=== PATIENT | male | born 1965 | race Caucasian/White ===

== ENCOUNTER 2025-02-19 14:31 | Inpatient (IN) | payer MEDICARE, MEDICAID ==
[~2025-02-19] VITALS: Ht 162.6 cm; Wt 65.9 kg
[~2025-02-19 14:31] MED LIST: ACET-75 PO; BRIM5DRO21 RIGHTEYE; CARSR60C PO; DULA4.5P SUBCUT; FURO20TA4 PO; INSU100V9 SQ; LANTUS SQ; LISI20TA28 PO; RIVA20TA PO; SITA100T11 PO
--- NOTE | 2025-02-19 15:11 | Physician Documentation ---
History of Present Illness ~ Chief Complaint: Wound Re-Check Stated Complaint: LEG WOUNDS Time Seen by MD: 18:00 Primary Medical Doctor: Kacey Brown HPI Patient presents to the emergency room for evaluation of lower extremity wounds. 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 He required surgical debridement by Dr. Daugherty at that time. Since that time he has been seen by wound care and saw wound care two days ago and danielle Solorzano who advised him to come to wound care [place] the city to be evaluated as symptoms had significantly worsened. He denies any fevers. He does states that there was some maggots crawling in his wounds. Today at wound care he was advised to come in to the emergency room. Tetanus within 5 years?: Yes Medication Reconciliation Allergies: Coded Allergies: codeine (Verified Adverse Reaction, Intermediate, 02/19/25) pt has a codeine intolerance Scheduled Brimonidine Tartrate/Timolol (Brimonidine-Timolol 0.2%-0.5%), 1 DROP RIGHTEYE BID, (Reported) Diltiazem Hcl (Cardizem Sr), 1 CAP PO Q12H Dulaglutide (Trulicity), 1 SYR SUBCUT Q7D, (Reported) Furosemide (Furosemide), 1 TAB PO DAILY Insulin Glargine,Hum.rec.anlog (Lantus), 30 UNIT SQ HS, (Reported) Insulin Glargine,Hum.rec.anlog* (Lantus*), 34 UNITS SQ QAM, (Reported) Lisinopril (Lisinopril), 20 MG PO DAILY Rivaroxaban (Xarelto), 1 TAB PO HS, (Reported) Sitagliptin Phosphate (Januvia), 1 TAB PO DAILY, (Reported) Scheduled PRN Acetaminophen (Acetaminophen), 1-2 TAB PO Q8H PRN for pain, (Reported) Past Medical History Past Medical History: Diabetes Past Surgical History: orthopedic surgeries, other Alcohol Use: None Drug Use: none Lives with: Alone Lives In: Home Occupation: retired Review of Systems ROS All review of systems negative except as per HPI Physical Exam Vital Signs: Temperature: 98.6, Source: Temporal, Heart Rate: 109, Respiratory Rate: 18, BP: 157/81, Pulse Oximetry: 98, Weight: 65.910 Oxygen Flow Rate: 0 Physical Exam General: Patient is awake, alert, oriented x4 in no acute distress. Wheelchair- bound but can transfer Head: Normocephalic and atraumatic. Eyes: Conjunctival normal. EOMI. PERRL. ENT: Mucous membranes moist. Neck: Supple, trachea is midline. Chest: Clear to auscultation bilaterally without rales, rhonchi, or wheezes. There is no accessory muscle use or retractions. Cardiac: RRR without murmurs, gallops, or rubs. Extremities: chronic ulcer to left anterior lang, foul smelling measuring approximatly 7cm X14 cm. OOzing clear fluid. Noted significant bilateral foot edema with flaking. Chronic wound noted to right anterior lang that does not ap pear infected. Progress Results/Orders Results/Orders Orders - SHIN VICKERS MD Page Hospitalist (02/19/25 18:44) Fill Out Med Reconciliation (02/19/25 18:44) Completed Orders - SHIN VICKERS MD Normal Saline 1000ml (Sodium Chloride 10 (02/19/25 18:25) Vancomycin Inj (Vancomycin Inj) (02/19/25 18:23) Vancomycin/Ns 1 Gm Add-[place] (Vancomyc (02/19/25 18:25) Medications Received in ER Medications (Trade) Dose Ordered Sig/Baltazar Route PRN Reason Start Time Stop Time Status Last Admin Dose Admin Sodium Chloride 1,000 ml @ 1,000 mls/hr ONCE ONCE IV 02/19/25 18:25 02/19/25 19:24 DC 02/19/25 19:14 1,000 MLS/HR Vancomycin HCl 250 ml @ 166 mls/hr ONCE STAT IV 02/19/25 18:25 02/19/25 19:53 DC 02/19/25 19:14 166 MLS/HR Vital Signs 02/19/25 02/19/25 14:40 17:45 Temp 98.6 Pulse 109 108 Resp 18 16 B/P (MAP) 157/81 148/80 (102) Pulse Ox 98 99 O2 Flow Rate 0 0 Laboratory Tests Test 02/19/25 15:37 White Blood Count 10.0 Red Blood Count 4.75 Hemoglobin 13.4 L Hematocrit 38.9 L Mean Corpuscular Volume 82.0 Mean Corpuscular Hemoglobin 28.2 Mean Corpuscular Hemoglobin Concent 34.4 Red Cell Distribution Width 13.3 Platelet Count 394 Mean Platelet Volume 9.3 Neutrophils (%) (Auto) 64.9 Lymphocytes (%) (Auto) 20.4 L Monocytes (%) (Auto) 9.8 Eosinophils (%) (Auto) 2.6 Basophils (%) (Auto) 2.3 H Neutrophils # (Auto) 6.5 Lymphocytes # (Auto) 2.0 Monocytes # (Auto) 1.0 H Eosinophils # (Auto) 0.3 Basophils # (Auto) 0.2 CBC Comment Sodium Level 140 Potassium Level 5.2 H Chloride Level 103 Carbon Dioxide Level 28.1 Anion Gap 9 Blood Urea Nitrogen 40 H Creatinine 0.99 Estimated GFR/1.73 m2 77 BUN/Creatinine Ratio 40.4 H Glucose Level 397 H Hemoglobin A1c 9.7 H Lactic Acid Level 1.1 Calcium Level 9.7 Albumin 3.0 L Procalcitonin 0.11 Chemistry Comments Microbiology Date/Time Source Procedure Growth Status 02/19/25 17:11 Blood Arm Right Blood Culture - Preliminary NEGATIVE (LESS THAN 24 HOURS) Resulted Medical Decision Making Findings Patient presented to the emergency room with wounds as per HPI in his lower extremities. Differentials include but are not limited to cellulitis, abscess, diabetic foot ulcer, sepsis therefore emergent labs ordered. The concern is patient seems to have failed outpatient management therefore we will admit Departure Admitted to Inpatient Unit: yes, to hospitalist Impression: Primary Impression: Cellulitis Condition: Guarded Referrals: NO PRIMARY CARE PROVIDER (PCP) Additional Comment Medical Screen Exam History: This is a 59-year-old male with history of surgery to his right posterior calf, patient is being seen at outpatient wound care for wounds to bilateral legs, care provider was concern for progressing infection and directed the patient to the emergency department. Exam: VITALS: Reviewed and as above. GENERAL: Alert, nontoxic appearing, no apparent distress. RESPIRATORY: No increased work of breathing, no respiratory distress, speaking in full clear sentences SKIN: Dressed wounds to bilateral legs without evidence of bleeding, dressings left in place as exam was in triage MSE performed in triage and patient returned to ED lobby by nursing staff you develop ED room, patient was well-appearing in triage and appropriate for wait in lobby The note accurately reflects work and decisions made by me.ANGELINA Esquivel 02/19/25 15:11 Signature Scribe Signature: No scribe Attestation: The note accurately reflects work and decisions made by me.Shin Vickers MD 02/20/25 00:39 JANUARY ALEXANDRE Feb 19, 2025 15:11 SHIN VICKERS MD Feb 19, 2025 18:28
[2025-02-19 16:00] LABS: BASOPHILS # (AUTO) 0.2 X10'3 (0-0.2); BASOPHILS % (AUTO) 2.3 % (0-1); EOSINOPHILS # (AUTO) 0.3 X10'3 (0-0.9); EOSINOPHILS % (AUTO) 2.6 % (0-6); HEMATOCRIT 38.9 % (42.0-52.0); HEMOGLOBIN 13.4 g/dl (14.0-17.9); LYMPHOCYTES % (AUTO) 20.4 % (21-51); MEAN CORPUSCULAR HEMOGLOBIN 28.2 PG (27.0-31.0); MEAN CORPUSCULAR HGB CONC 34.4 g/dL (33.0-36.5); MEAN PLATELET VOLUME 9.3 FL (7.4-10.4); MONOCYTES % (AUTO) 9.8 % (2-12); NEUTROPHILS # (AUTO) 6.5 X10'3 (1.8-7.7); NEUTROPHILS % (AUTO) 64.9 % (42-75); PLATELET COUNT 394 X10'3 (140-440); RED BLOOD COUNT 4.75 X10'6 (4.70-6.10); RED CELL DISTRIBUTION WIDTH 13.3 % (11.5-14.5)
[2025-02-19 16:19] LABS: ANION GAP 9 (8-16); BLOOD UREA NITROGEN 40 MG/DL (7-18); BUN/CREATININE RATIO 40.4 (10.0-20.0); CALCIUM 9.7 MG/DL (8.5-10.1); CHLORIDE 103 MMOL/L (99-107); CREATININE 0.99 MG/DL (0.60-1.10); GLUCOSE 397 MG/DL (70-104); POTASSIUM 5.2 MMOL/L (3.5-5.1); SODIUM 140 MMOL/L (135-145); TOTAL CARBON DIOXIDE 28.1 MMOL/L (24-32); eCRCL 67 ML/MIN; eGFR 77 ML/MIN
[2025-02-19] MEDS ORDERED: vancomycin inj 1,000 MG in normal saline 250ml IV soln 250 ML IV STA (18:23)
[2025-02-19] MEDS: vancomycin/NS 1 GM ADD-VANTAGE 250 ML IV STA (19:14)
[2025-02-19] MEDS: normal saline 1000ml 1,000 ML IV ONE (19:14)
[2025-02-19] MEDS ORDERED: potassium Cl 20 mEq SR tablet PO PRN ×2 (20:10)
[2025-02-19] MEDS ORDERED: magnesium sulf-water 4G/100mL 100 ML IV PRN (20:10)
[2025-02-19] MEDS ORDERED: magnesium Cl slow-release 64mg tablet PO PRN (20:10)
[2025-02-19] MEDS ORDERED: magnesium sulf-water 2g/50mL 50 ML IV PRN (20:10)
[2025-02-19] MEDS ORDERED: CefTRIAXone/D5W-Rocephin 1gm 50 ML IV ONE (20:10)
[2025-02-19] MEDS ORDERED: potassium Cl 40MEQ/1/2NS 520ml 520 ML IV PRN (20:10)
[2025-02-19] MEDS ORDERED: ondansetron/PF 4mg/2ml inj IV PRN (20:10)
--- NOTE | 2025-02-19 20:16 | HISTORY AND PHYSICAL-Residence ---
History & Physical Providers to CC Resident Creating Document: MITRA JORGE LEANA ~ History of Present Illness Primary Medical Doctor: Kacey Brown Reason for Admit\Complaint: B/L leg swelling & non-healing wound History of Present Illness This is a 59-year-old male with a history of chart could to disease, wheelchair-bound, history of poorly controlled DM, peripheral neuropathies, and hypertension was referred by the wound care clinic for evaluation of nonhealing lower extremity wounds, present for approximately two months. The patient underwent surgical debridement of the right lower extremity in October [address] Daugherty. Since then, he has been followed by wound care with poor healing response. For the past several days, he reports increasing swelling in both lower extremities, more pronounced on the left side, along with significantly worsened pain he denies fever, but reports intermittent chills. Notably, he observed maggots crawling in the wound. Allergies: Coded Allergies: codeine (Verified Adverse Reaction, Intermediate, 02/19/25) pt has a codeine intolerance Home Medications Home Medications Active Furosemide 20 Mg Tablet 1 Tab PO DAILY 10 Days Lisinopril 20 Mg Tablet 20 Mg PO DAILY 30 Days Cardizem Sr (Diltiazem Hcl) 60 Mg Cap.sr.12h 1 Cap PO Q12H 30 Days Reported Acetaminophen 500 Mg Tablet 1-2 Tab PO Q8H PRN Brimonidine-Timolol 0.2%-0.5% (Brimonidine Tartrate/Timolol) 0.2 %-0.5 % Drops 1 Drop RIGHTEYE BID Lantus (Insulin Glargine,Hum.rec.anlog) 100 Unit/Ml Vial 30 Unit SQ HS Lantus* (Insulin Glargine) 100 Unit/1 Ml Vial 34 Units SQ QAM Trulicity (Dulaglutide) 4.5 Mg/0.5 Ml Pen.injctr 1 Syr SUBCUT Q7D Xarelto (Rivaroxaban) 20 Mg Tablet 1 Tab PO HS Januvia (Sitagliptin Phosphate) 100 Mg Tablet 1 Tab PO DAILY Past Medical History Past Medical History Childhood Bebe tooth disease, hypertension, peripheral neuropathies, diabetes, hypertension Past Social History Social History Comment Patient lives alone by himself, has a caregiver, wheelchair-bound, denies smoking cigarettes, consuming alcohol, or recreational drugs. Smoking: Non-Smoker Alcohol Use: None Drug Use: None Lives with: Alone Lives In: Home Occupation: retired ROS All Other Systems: Reviewed and Negative ROS As stated above in the HPI, otherwise all systems are reviewed and negative. Exam Vitals: Vital Signs Date Time Temp Pulse Resp B/P (MAP) Pulse Ox O2 Delivery O2 Flow Rate FiO2 02/19/25 17:45 108 16 148/80 (102) 99 0 02/19/25 14:40 98.6 General: Awake and Alert, no acute distress. HEENT: Conjunctiva pink, Sclera clear, Mucus Membranes moist. Neck: Supple without masses and tenderness. Resp: Unlabored. Lungs clear to auscultation bilaterally. Heart: Regular Rate and rhythm, normal S1 and S2 without murmur, rub or gallop. Abdomen: Soft and non tender no organomegaly Extremities: Open wounds bilateral lower extremities, more pronounced on left lower extremity, with bilateral swelling and some tenderness. Swelling more pronounced on left foot, pedal pulses feeble Skin: Warm and Dry. Diagnostic Data Last Recorded Lab Results: 02/20/25 0444 02/20/25 0444 Advance Care Planning Advanced Care plannin - 30 Minutes Additional Plan 59-year-old male with progressively worsening left lower extremity swelling and pain in the setting of chronic wounds. Reports chills but no fever, and presence of maggots in the wound, concern for superimposed soft tissue infection. Clinical picture consistent with left lower extremity cellulitis, with concern for polymicrobial infection given poor glycemic control in immune status Chronic nonhealing bilateral lower extremity wounds Left lower extremity cellulitis Necrotizing soft tissue infection is less likely Antibiotics: Initiated vancomycin and Zosyn for broad-spectrum coverage including MRSA, Gram-negative, and anaerobes. Adjust based on culture result in renal function Wound care consult requested Follow ESR, proceed with the MRI if elevated Follow wound culture Follow LLE vascular ultrasound Poorly controlled diabetes type 2 HbA1C 9.7 Hyperglycemia/hypoglycemia protocol in place Lantus 50 units, and lispro 15 units 3 times daily Carb controlled diet Atrial fibrillation: Rate controlled Continue Xarelto 10 mg HS. Hypertension History of hypertensive urgency Continue home medications Code status: Full code DVT prophylaxis: Devora Wallace noel Internal Medicine Resident Date of Service: Feb 19, 2025 Billing Provider: SELVIN MEIER MD Common Visit Codes: [id number] INP/OBS CARE (HIGH) Assessment/Plan Assessment Evaluated the patient with the help of residents. Discussed the case with them. Reviewed notes by the resident. Agree with his assessments and plans. Additionally I also reviewed patient's records. Labs radiology and notes from other providers I agree with the current assessments and plans no additional points at this time. MITRA JORGE, RES Feb 19, 2025 20:16 SELVIN MEIER MD Feb 20, 2025 06:23
[2025-02-19] MEDS ORDERED: piperacillin/tazo 3.375gm/50ml 50 ML IV SCH (20:25)
[2025-02-19] MEDS ORDERED: glucagon, human recombinant 1mg kit SUBCUT PRN (20:30)
[2025-02-19] MEDS ORDERED: DEXTROSE 15 GM of carb/4 tabs (each vial/BOTTLE has 4 tablets) PO PRN ×2 (20:30)
[2025-02-19] MEDS ORDERED: dextrose 50%-water 50ml dispensing syringe IV PRN ×2 (20:30)
[2025-02-19 20:31] LABS: HEMOGLOBIN A1C 9.7 % (4.5-6.2)
[2025-02-19] MEDS: normal saline 1000ml 1,000 ML IV SCH (20:38)
[2025-02-19] MEDS: piperacillin/tazo 3.375gm/50ml 50 ML IV SCH (20:46)
[2025-02-19] MEDS: INSULIN LISPRO 100 UNIT/ML INSULN.PEN MULTI-DOSE SQ SCH (21:13)
[2025-02-19] MEDS: insulin glargine (Lantus) pen - multi-dose SQ SCH (21:22)
[2025-02-19 21:34] LABS: BILIRUBIN,URINE NEGATIVE (Neg); CLARITY,URINE CLEAR (Clear); COLOR,URINE YELLOW (Yellow); GLUCOSE, URINE >=1000 mg/dl (Neg); KETONES,URINE NEGATIVE (Neg); LEUKOCYTE ESTERASE ,URINE NEGATIVE (Neg); NITRITES, URINE NEGATIVE (Neg); OCCULT BLOOD,URINE SMALL (Neg); PROTEIN,URINE 100 mg/dl (Neg); UROBILINOGEN,URINE 0.2 E.U/dL (0.2-1.0)
[2025-02-19 21:35] LABS: UA COLLECTION TYPE NON-SPECIFIED
[2025-02-19 21:40] LABS: BACTERIA,URINE NONE SEEN /HPF (Neg); MUCUS STRANDS NONE SEEN /LPF (Neg); SQUAMOUS EPITHELIAL CELL,UR FEW /LPF (FEW); WBC,URINE 0-4 /HPF (0-4)
[2025-02-19 22:00] VITALS: BP 168/74; PULSE 111; RESP 18; TEMP 97.6; O2SAT 99
[2025-02-19] MEDS: acetaminophen 325mg tablet PO PRN (23:47)
[2025-02-20 05:05] LABS: BASOPHILS # (AUTO) 0.2 X10'3 (0-0.2); EOSINOPHILS # (AUTO) 0.3 X10'3 (0-0.9); EOSINOPHILS % (AUTO) 3.5 % (0-6); LYMPHOCYTES # (AUTO) 1.5 X10'3 (1.1-4.8); MONOCYTES # (AUTO) 1.3 X10'3 (0-0.9)
[2025-02-20 05:07] LABS: BASOPHILS % (AUTO) 2.3 % (0-1); HEMATOCRIT 35.9 % (42.0-52.0); HEMOGLOBIN 12.2 g/dl (14.0-17.9); LYMPHOCYTES % (AUTO) 16.1 % (21-51); MEAN CORPUSCULAR HEMOGLOBIN 28.1 PG (27.0-31.0); MEAN CORPUSCULAR VOLUME 82.7 FL (78-98); MEAN PLATELET VOLUME 9.1 FL (7.4-10.4); MONOCYTES % (AUTO) 13.6 % (2-12); NEUTROPHILS % (AUTO) 64.5 % (42-75); PLATELET COUNT 308 X10'3 (140-440); RED BLOOD COUNT 4.34 X10'6 (4.70-6.10); WHITE BLOOD COUNT 9.3 X10'3 (4.5-11.0)
[2025-02-20 05:30] LABS: ALANINE AMINOTRANSFERASE 14 U/L (12-78); ALBUMIN 2.4 G/DL (3.4-5.0); ALBUMIN/GLOBULIN RATIO 0.7 (1.1-1.5); ALKALINE PHOSPHATASE 81 IU/L (46-116); ANION GAP 6 (8-16); ASPARTATE AMINO TRANSFERASE 13 U/L (10-37); BILIRUBIN,TOTAL 0.2 MG/DL (0.1-1.0); BLOOD UREA NITROGEN 28 MG/DL (7-18); BUN/CREATININE RATIO 45.2 (10.0-20.0); CALCIUM 8.6 MG/DL (8.5-10.1); CHLORIDE 109 MMOL/L (99-107); CHOL/HDL RATIO 5.1 (0.00-4.99); CHOLESTEROL 137 MG/DL (0-200); CREATININE 0.62 MG/DL (0.60-1.10); GLUCOSE 119 MG/DL (70-104); HDL CHOLESTEROL 27 MG/DL (35-60); LDL CHOLESTEROL 59 MG/DL (50-100); SODIUM 140 MMOL/L (135-145); TOTAL CARBON DIOXIDE 25.3 MMOL/L (24-32); TOTAL PROTEIN 5.9 G/DL (6.4-8.2); TRIGLYCERIDES 275 MG/DL (20-135); eCRCL 107 ML/MIN; eGFR > 90 ML/MIN
[2025-02-20 06:00] VITALS: BP 162/84; PULSE 102; RESP 13; TEMP 98.2; O2SAT 96
[2025-02-20] MEDS: vancomycin/NS 1 GM ADD-VANTAGE 250 ML IV SCH (06:50)
[2025-02-20 08:00] VITALS: RESP 13; O2SAT 96
[2025-02-20] MEDS ORDERED: CefTRIAXone/D5W-Rocephin 1gm 50 ML IV SCH (08:00)
[2025-02-20] MEDS: K and/or MAG REPLACEMENT MC SCH (08:00)
[2025-02-20] MEDS: INSULIN LISPRO 100 UNIT/ML INSULN.PEN MULTI-DOSE SQ SCH ×3 (08:00→19:25)
--- NOTE | 2025-02-20 08:15 | CONSULTATION REPORT ---
History of Present Illness Providers to CC ~ Reason for Admit\Admit Dx: B/L leg swelling & non-healing wound Refering MD: Dr Hays History of Present Illness The patient is a 59-year-old man known to me as he was seen in the October 2024 for right leg wound which was debrided operatively. He is diabetic with a peripheral neuropathy and a chronic leg wounds . He is admitted with bilateral lower extremity pain and swelling. He complains of pain in the right foot more than the left. This started up about a week prior to admission. Consultation was obtained for possible surgical treatment of bilateral lower extremity wounds Allergies: Coded Allergies: codeine (Verified Adverse Reaction, Intermediate, 02/19/25) pt has a codeine intolerance Home Medications Home Medications Active Furosemide 20 Mg Tablet 1 Tab PO DAILY 10 Days Lisinopril 20 Mg Tablet 20 Mg PO DAILY 30 Days Cardizem Sr (Diltiazem Hcl) 60 Mg Cap.sr.12h 1 Cap PO Q12H 30 Days Reported Acetaminophen 500 Mg Tablet 1-2 Tab PO Q8H PRN Brimonidine-Timolol 0.2%-0.5% (Brimonidine Tartrate/Timolol) 0.2 %-0.5 % Drops 1 Drop RIGHTEYE BID Lantus (Insulin Glargine,Hum.rec.anlog) 100 Unit/Ml Vial 30 Unit SQ HS Lantus* (Insulin Glargine) 100 Unit/1 Ml Vial 34 Units SQ QAM Trulicity (Dulaglutide) 4.5 Mg/0.5 Ml Pen.injctr 1 Syr SUBCUT Q7D Xarelto (Rivaroxaban) 20 Mg Tablet 1 Tab PO HS Januvia (Sitagliptin Phosphate) 100 Mg Tablet 1 Tab PO DAILY Physical Exam Last Vital Signs Recorded: Temperature: 97.6, Source: Oral, Heart Rate: 111, Respiratory Rate: 18, BP: 168/74, Pulse Oximetry: 99, Weight: 65.910 General Appearance: alert, no apparent distress Extremities With moderate swelling of the left lower extremity dorsal foot area. There are multiple chronic wounds in various stages of healing on the tips of the toes and the leg above the ankle area. There was no obvious open wounds to be seen. On the right foot there is moderate swelling of the dorsum of the foot and lower ankle region. The large chronic ulceration in the mid tibia region does not appear to be deep. There was also multiple eschars on the tips of the toes but no obvious deep wounds or abscess areas. Results Results/Orders Results/Orders CT shows no evidence of air pockets were osteomyelitis. Diagram Lab Result Diagram: 02/20/25 0444 02/20/254 Assessment/Plan Problems/Diagnosis: (1) Cellulitis, leg Additional Plan IV antibiotics and observation is warranted at this time. I do not see any surgical the procedure dressed going to help him at this stage. I will observe with you. Thank you for this consultation Problem Qualifiers (1) Cellulitis, leg: Qualified Codes: L03.119 - Cellulitis of unspecified part of limb RIGOBERTO MITCHELL Jr., MD Feb 20, 2025 08:15
[2025-02-20 09:55] LABS: URINE AMPHETAMINE SCREEN NEGATIVE (Neg); URINE BARBITUATE SCREEN NEGATIVE (Neg); URINE BENZODIAZEPINES SCREEN NEGATIVE (Neg); URINE CANNABINOID SCREEN NEGATIVE (Neg); URINE COCAINE SCREEN NEGATIVE (Neg); URINE METHADONE SCREEN NEGATIVE (Neg); URINE OPIATE SCREEN NEGATIVE (Neg); URINE PHENCYCLIDINE SCREEN NEGATIVE (Neg)
[2025-02-20 10:00] VITALS: BP 160/84; PULSE 114; RESP 24; TEMP 98.2; O2SAT 99
--- NOTE | 2025-02-20 12:40 | PROGRESS NOTE- Residence ---
Progress Note - Resident Providers to CC Resident Creating Document: TOYA DONNELLY RES ~ Antibiotic Timeout Antibiotic Ordered?: Yes Subjective Patient was seen at the bedside while the wound care team is taking care of his bilateral leg wounds. He usually went to [facility] for his PCP, currently go to [place]. He is taking Xarelto for history of DVT two years ago without having any bleeding manifestations. Debridement was done by Dr. Daugherty on last admission October 2024. Objective Vital Signs Date Time Temp Pulse Resp B/P (MAP) Pulse Ox O2 Delivery O2 Flow Rate FiO2 02/20/25 10:00 98.2 114 24 160/84 (109) 99 Room Air 02/19/25 21:36 0 Result Diagram: 02/20/2544302/20/25443 Vitals were stable at the moment with temp 98.2 F, NC 114/minute, RR 24/minute, BP 160/84 mm Hg, pulse oximetry 99% on room air. On exam, General: Well alert, well oriented, not confused, not agitated, not in acute distress, well cooperated during the physical. HEENT: Conjunctive are pink, sclerae clear, no icterus, pupil is equal in both sides, reactive to light, no ear discharge, no pharyngeal erythema or an edema, mouth and lips are moist. Neck: Supple, no JVD, no lymphadenopathy and thyromegaly. Lungs:Equal air entry on both lungs, no additional sounds Heart: S1-S2 regular sinus rhythm and, regular rate, no gallops, no rubs, no murmurs Abdomen: No visible peristalsis, Bowel sounds present on auscultation, soft, nontender, no guarding, no rigidity Extremities: 5x 7 cm on right calf, 3 x 4 cm wound on left lang with the extensive small unhealed wounds bilateral legs with swelling and tenderness were noted. No obvious deformities, capillary refill intact, able to wiggle toes both sides, peripheral pulsations are intact on both sides MIND READER: No focal neurological deficits, no motor and sensory weakness in all 4 extremities, could move all 4 extremities Musculoskeletal: No joint swelling, deformities, inflammations, and no scoliosis and back tenderness Skin: No active skin lesions and rashes Assessment Assessment A 59-year-old electric wheelchair-bound male with PMH of Charcot tooth disease, hypertension, peripheral neuropathies, poorly controlled type 2 diabetes, hypertension, and Hx of HFpEF 50-55% ( on 10/25/24) presented with progressively worsening left lower extremity swelling and pain in the setting of chronic wounds. Reports chills but no fever, and presence of maggots in the wound, concern for superimposed soft tissue infection. Clinical picture consistent with left lower extremity cellulitis, with concern for polymicrobial infection given poor glycemic control in immune status. Notably, he observed maggots crawling in the wound. Plan Plan # Chronic nonhealing bilateral lower extremity wounds # Left lower extremity cellulitis 02/20/25: continue wound care and IV Vanc and Zosyn with Cr 0.68- Day 2 -Elevated ESR, no leucocytosis -Ordered MRI bilateral legs to rule out the OM -Consulted with ID Dr Soriano for the possible ABx downgrading and she will consult the patient -f/up w/ Blood C&S (negative for less than 24hrs) and wound C&S for ABx adjustment -pain control w/ PO [place] 5 mg as needed 02/19/25: Necrotizing soft tissue infection is less likely Antibiotics: Initiated vancomycin and Zosyn for broad-spectrum coverage including MRSA, Gram-negative, and anaerobes. Adjust based on culture result in renal function Wound care consult requested Follow ESR, proceed with the MRI if elevated Follow wound culture Follow LLE vascular ultrasound # Poorly controlled diabetes type 2 02/20/25: this morning FBS showed around 90s after 50 units of SC Glargine 50 units -he was controlling his RBS only with the diet and insulin glargine only -Continue SC lispro 15 units after meal and sc s/s high dose insulin regimen -adjusted SC glargine 40 units from the 50 -will adjust the insulin injections with the targeted goal of between 140-180s 02/19/25: HbA1C 9.7 Hyperglycemia/hypoglycemia protocol in place Lantus 50 units, and lispro 15 units 3 times daily Carb controlled diet #Atrial fibrillation CVR on Xarelto 02/20/25:His CHA2D VASc score is 3-4 and currently on Xarelto for the hx of unprovoked DVT left leg 2 years back -continue Xarelto and report for any bleeding 02/19/25: Continue Xarelto 10 mg HS # Hypertension #History of hypertensive urgency # Hx of HFpEF 50-55% ( on 10/25/24) 02/20/25:last time echo on 10/25/24 showed mild concentric LV hypertrophy, systolic function low normal, LVEF 50-55%, LA normal, trace MR, TR, NC and no pericardial effusion Continue home medications including furosemide 20, Lisinopril 20 and Diltiazem Code status: Full code DVT prophylaxis: Xarelto Analgesia/sedation: P.o. Gulf Breeze-five as needed Lines/tubes: PIV Nutrition: 75 carbs controlled Prognosis: Guarded Disposition: Continue medical management including IV antibiotics, fluids, wound care, PT eval and DC plan. Resident MD attestation: Patient was seen, examined and discussed with attending MD, Dr. Cecily DONNELLY MD Internal Medicine Resident, PGY2 [facility] Date of Service: Feb 20, 2025 Billing Provider: DEJUAN GARDNER MD Common Visit Codes: [id number] INP/OBS CARE(HIGH) TOYA DONNELLY, RES Feb 20, 2025 12:40 DEJUAN GARDNER MD Feb 25, 2025 16:43
[2025-02-20] MEDS: furosemide 20MG tablet PO SCH (13:47)
--- NOTE | 2025-02-20 14:11 | VASCULAR REPORT ---
CLINICAL HISTORY: Pain in bilateral lower extremities TECHNIQUE: Color and duplex doppler imaging of the bilateral lower extremity veins was performed. Ves lilia compression if possible was also performed. WID: COMPARISON: None FINDINGS: Subcutaneous edema in the bilateral lower extremities Right Lower Extremity: Right common femoral vein: Normal compressibility and flow. Right femoral vein: Normal compressibility and flow. Right popliteal vein: Normal compressibility and flow. Proximal calf veins are normally compressible. Left Lower Extremity: Left common femoral vein: Normal compressibility and flow. Left femoral vein: Normal compressibility and flow. Left popliteal vein: Normal compressibility and flow. Proximal calf veins are normally compressible. IMPRESSION: 1. NO SONOGRAPHIC EVIDENCE FOR DEEP VENOUS THROMBOSIS IN THE BILATERAL LOWER EXTREMITY VEINS. 2. Subcutaneous edema in the bilateral lower extremities.
[2025-02-20] MEDS: rivaroxaban 10mg tablet PO SCH (16:58)
[2025-02-20 18:00] VITALS: BP 146/67; PULSE 112; RESP 18; TEMP 98.1; O2SAT 97
[2025-02-20] MEDS: VANCOmycin 1250MG/NS 250ml Bag 250 ML IV SCH (18:17)
[2025-02-20] MEDS: brimonidine 0.2% 5 ML ophthalmic drops RIGHTEYE SCH (19:27)
[2025-02-20] MEDS: timolol 0.5% ophthalmic solution 5ml bottle RIGHTEYE SCH (19:28)
[2025-02-20] MEDS: diltiazem SR 60mg capsule (twice daily) PO SCH (19:37)
[2025-02-21 00:22] VITALS: BP 167/76; PULSE 104; RESP 17; TEMP 98.2; O2SAT 98
[2025-02-21] MEDS: insulin glargine (Lantus) pen - multi-dose SQ SCH (00:40)
[2025-02-21 04:25] LABS: BASOPHILS # (AUTO) 0.2 X10'3 (0-0.2); EOSINOPHILS # (AUTO) 0.4 X10'3 (0-0.9); HEMOGLOBIN 11.7 g/dl (14.0-17.9); LYMPHOCYTES # (AUTO) 1.7 X10'3 (1.1-4.8); MONOCYTES # (AUTO) 1.1 X10'3 (0-0.9)
[2025-02-21 04:27] LABS: BASOPHILS % (AUTO) 2.1 % (0-1); EOSINOPHILS % (AUTO) 4.6 % (0-6); HEMATOCRIT 35.2 % (42.0-52.0); LYMPHOCYTES % (AUTO) 17.6 % (21-51); MEAN CORPUSCULAR HEMOGLOBIN 27.4 PG (27.0-31.0); MEAN CORPUSCULAR HGB CONC 33.3 g/dL (33.0-36.5); MEAN CORPUSCULAR VOLUME 82.3 FL (78-98); MEAN PLATELET VOLUME 9.1 FL (7.4-10.4); MONOCYTES % (AUTO) 11.7 % (2-12); NEUTROPHILS # (AUTO) 6.1 X10'3 (1.8-7.7); PLATELET COUNT 340 X10'3 (140-440); RED BLOOD COUNT 4.27 X10'6 (4.70-6.10); RED CELL DISTRIBUTION WIDTH 13.1 % (11.5-14.5); WHITE BLOOD COUNT 9.6 X10'3 (4.5-11.0)
[2025-02-21 04:43] LABS: ALANINE AMINOTRANSFERASE 14 U/L (12-78); ALBUMIN 2.3 G/DL (3.4-5.0); ALBUMIN/GLOBULIN RATIO 0.7 (1.1-1.5); ALKALINE PHOSPHATASE 74 IU/L (46-116); ANION GAP 7 (8-16); ASPARTATE AMINO TRANSFERASE 8 U/L (10-37); BILIRUBIN,TOTAL 0.2 MG/DL (0.1-1.0); BLOOD UREA NITROGEN 21 MG/DL (7-18); BUN/CREATININE RATIO 33.3 (10.0-20.0); CALCIUM 8.9 MG/DL (8.5-10.1); CHLORIDE 108 MMOL/L (99-107); CREATININE 0.63 MG/DL (0.60-1.10); GLUCOSE 122 MG/DL (70-104); POTASSIUM 4.1 MMOL/L (3.5-5.1); SODIUM 142 MMOL/L (135-145); TOTAL PROTEIN 5.7 G/DL (6.4-8.2); eCRCL 106 ML/MIN; eGFR > 90 ML/MIN
--- NOTE | 2025-02-21 05:01 | RADIOLOGY REPORT ---
[facility] EXAM[facility]: MR MRI LOWER EXTREMITY RIGHT and left TECHNIQUE: MRI of the left lower extremity was performed. Images were obtained without intravenous c ontrast administration. HISTORY: chronic non healing wounds both legs shaji on left; DM+ COMPARISON: CT CT LOWER EXTREMITY on DOS: 10/23/24 Findings/ IMPRESSION: Chronic healed fracture of the right distal tibia. Diffuse subcutaneous soft-tissue edema and swelling; possibly cellulitis. No bone marrow edema is present to suggest acute osteomyelitis or fracture.
--- NOTE | 2025-02-21 05:01 | RADIOLOGY REPORT ---
[facility] EXAMINATION: MR MRI LOWER EXTREMITY RIGHT and left TECHNIQUE: MRI of the left lower extremity was performed. Images were obtained without intravenous c ontrast administration. HISTORY: chronic non healing wounds both legs shaji on left; DM+ COMPARISON: CT CT LOWER EXTREMITY on DOS: 10/23/24 Findings/ IMPRESSION: Chronic healed fracture of the right distal tibia. Diffuse subcutaneous soft-tissue edema and swelling; possibly cellulitis. No bone marrow edema is present to suggest acute osteomyelitis or fracture.
--- NOTE | 2025-02-21 05:02 | RADIOLOGY REPORT ---
EXAM: MR MRI LOWER EXTREMITY LEFT CLINICAL INDICATION: chronic non healing wounds both legs shaji on left; DM+ COMPARISON: CT CT LOWER EXTREMITY on DOS: 10/23/24 TECHNIQUE: Multiplanar, multisequence MRI of the left tibia-fibula (lower leg) was performed without intravenous contrast. Contrast: None INTERPRETATION: Bones: There is no fracture or bone marrow edema. There is no marrow replacing process in the T1 payal ghted images. Soft tissues: There is diffuse muscle atrophy in all compartments with fatty infiltration. There is edema within all the muscles of the lower extremity. No intramuscular fluid collection. There is ed meera along the fascial planes of the musculature. Marked circumferential subcutaneous edema is presen t in the leg from the knee down to the foot. No fluid collection. IMPRESSION: 1. Marked circumferential subcutaneous edema in the left lower extremity from knee to to the ankle wh ich may reflect cellulitis. No fluid collection. 2. Edema in all muscle groups lower extremity. Please note that compartment syndrome is a clinical di agnosis and should be excluded on that basis. 3. No MR evidence of osteomyelitis.
--- NOTE | 2025-02-21 05:06 | RADIOLOGY REPORT ---
CLINICAL INDICATION: CHRONIC WOUND KNEE DOWN COMPARISON: CT CT LOWER EXTREMITY on DOS: 10/23/24 TECHNIQUE: Multiplanar, multisequence MRI of the left foot was performed without intravenous contrast . Contrast: None. INTERPRETATION: Bones: No evidence of acute fracture. There is no marrow replacing lesion. Joints: Hammertoe deformities. Hallux valgus. Soft tissues: Marked dorsal subcutaneous edema in the foot. No obvious fluid collection. No high-gra de tendon or ligament injury. Fatty replacement of the intrinsic muscles in the foot with edema. IMPRESSION: 1. No MR evidence of osteomyelitis in the left foot. 2. Diffuse dorsal subcutaneous edema which may reflect cellulitis. No fluid collection. 3. Edema and fatty replacement in the intrinsic muscles of the foot. Myositis not excluded. Please n ote the compartment is a clinical diagnosis and should be excluded on that basis.
[2025-02-21 06:38] VITALS: BP 139/69; PULSE 69; RESP 16; TEMP 98.3; O2SAT 94
[2025-02-21] MEDS: lisinopril 20mg tablet PO SCH (07:18)
[2025-02-21] MEDS: linagliptin 5mg tablet PO SCH (07:18)
[2025-02-21] MEDS: JUVEN Smoothie Arginine/Glut./Ca2+Bmb (Juven 19.3pkt) 240ml cup PO SCH (08:00)
[2025-02-21] MEDS ORDERED: bisacodyl 10mg suppository rectal RC PRN (10:45)
[2025-02-21] MEDS ORDERED: FURO-150 PO (15:25)
[2025-02-21] MEDS ORDERED: CARSR60C PO (15:25)
[2025-02-21] MEDS ORDERED: LISI20TA28 PO (15:25)
[2025-02-21 18:00] VITALS: BP 154/75; PULSE 105; RESP 16; TEMP 98.4; O2SAT 98
--- NOTE | 2025-02-21 19:24 | PROGRESS NOTE- Residence ---
Progress Note - Resident Providers to CC Resident Creating Document: TOYA DONNELLY RES ~ Antibiotic Timeout Antibiotic Ordered?: Yes Subjective Patient will be having PT today. He is having wound care daily and infectious doctor Dr. Ruffin will be seeing the patient today for adjustment of antibiotics. Objective Vital Signs Date Time Temp Pulse Resp B/P (MAP) Pulse Ox O2 Delivery O2 Flow Rate FiO2 02/21/25 08:30 Room Air 0.0 02/21/25 07:18 69 02/21/25 06:38 98.3 16 139/69 (92) 94 Result Diagram: 02/21/25 0401 02/21/25 0401 Vitals were stable at the moment with temp 98.2 F, [place] 114/minute, RR 24/minute, BP 160/84 mm Hg, pulse oximetry 99% on room air. On exam, General: Well alert, well oriented, not confused, not agitated, not in acute distress, well cooperated during the physical. HEENT: Conjunctive are pink, sclerae clear, no icterus, pupil is equal in both sides, reactive to light, no ear discharge, no pharyngeal erythema or an edema, mouth and lips are moist. Neck: Supple, no JVD, no lymphadenopathy and thyromegaly. Lungs:Equal air entry on both lungs, no additional sounds Heart: S1-S2 regular sinus rhythm and, regular rate, no gallops, no rubs, no murmurs Abdomen: No visible peristalsis, Bowel sounds present on auscultation, soft, nontender, no guarding, no rigidity Extremities: 5x 7 cm on right calf, 3 x 4 cm wound on left lang with the extensive small unhealed wounds bilateral legs with swelling and tenderness were noted. No obvious deformities, capillary refill intact, able to wiggle toes both sides, peripheral pulsations are intact on both sides DIGITAL CAMPAIGN SPECIALIST: No focal neurological deficits, no motor and sensory weakness in all 4 extremities, could move all 4 extremities Musculoskeletal: No joint swelling, deformities, inflammations, and no scoliosis and back tenderness Skin: No active skin lesions and rashes Assessment Assessment A 59-year-old electric wheelchair-bound male with PMH of Charcot tooth disease, hypertension, peripheral neuropathies, poorly controlled type 2 diabetes, hypertension, and Hx of HFpEF 50-55% ( on 10/25/24) presented with progressively worsening left lower extremity swelling and pain in the setting of chronic wounds. Reports chills but no fever, and presence of maggots in the wound, concern for superimposed soft tissue infection. Clinical picture consistent with left lower extremity cellulitis, with concern for polymicrobial infection given poor glycemic control in immune status. Notably, he observed maggots crawling in the wound. Plan Plan # Chronic nonhealing bilateral lower extremity wounds-pending unknown etiology # Left lower extremity cellulitis 02/21/2025: Bilateral unhealed leg wounds are not related to prior surgeries, and etiology is tentative with the possibility of poor controlled DM Vs arterial insufficiency with hx of Ngryjpn-Dccwr-Dcgyi disease. -Continue wound care, Dr. Ruffin will be seeing the patient today. -recommended for the Oral ABx since he did not have leukocytosis -also recommended for arterial ultrasound 02/20/25: continue wound care and IV Vanc and Zosyn with Cr 0.68- Day 2 -Elevated ESR, no leucocytosis -Ordered MRI bilateral legs to rule out the OM -Consulted with ID Dr Soriano for the possible ABx downgrading and she will consult the patient -f/up w/ Blood C&S (negative for less than 24hrs) and wound C&S for ABx adjustment -pain control w/ PO Simms 5 mg as needed 02/19/25: Necrotizing soft tissue infection is less likely Antibiotics: Initiated vancomycin and Zosyn for broad-spectrum coverage including MRSA, Gram-negative, and anaerobes. Adjust based on culture result in renal function Wound care consult requested Follow ESR, proceed with the MRI if elevated Follow wound culture Follow LLE vascular ultrasound # Poorly controlled diabetes type 2 # Moderate protein calorie malnutrition 02/21/2025: Continue current insulin regimen -protein calorie malnutrition most probably from the diabetes nephrotic proteinuria versus low intake versus chronic wheelchair-bound with possible muscular atrophy and wasting. -encourage protein diet. 02/20/25: this morning FBS showed around 90s after 50 units of SC Glargine 50 units -he was controlling his RBS only with the diet and insulin glargine only -Continue SC lispro 15 units after meal and sc s/s high dose insulin regimen -adjusted SC glargine 40 units from the 50 -will adjust the insulin injections with the targeted goal of between 140-180s 02/19/25: HbA1C 9.7 Hyperglycemia/hypoglycemia protocol in place Lantus 50 units, and lispro 15 units 3 times daily Carb controlled diet #Atrial fibrillation CVR on Xarelto 02/21/2025: Heart rate is controlled around 100s, continue Xarelto and diltiazem 60 b.i.d. 02/20/25:His CHA2D VASc score is 3-4 and currently on Xarelto for the hx of unprovoked DVT left leg 2 years back -continue Xarelto and report for any bleeding 02/19/25: Continue Xarelto 10 mg HS # Hypertension #History of hypertensive urgency # Hx of HFpEF 50-55% ( on 10/25/24) 02/21/25: Proper pain control management, continue diltiazem and lisinopril 20 mg 02/20/25:last time echo on 10/25/24 showed mild concentric LV hypertrophy, systolic function low normal, LVEF 50-55%, LA normal, trace MR, TR, [place] and no pericardial effusion Continue home medications including furosemide 20, Lisinopril 20 and Diltiazem Code status: Full code DVT prophylaxis: Xarelto Analgesia/sedation: P.o. Simms-five as needed Lines/tubes: PIV Nutrition: 75 carbs controlled Prognosis: Guarded Disposition: Continue medical management including IV antibiotics, fluids, wound care, PT eval and DC plan with Rehab plan and f/up w/ ID . Resident attestation: Patient was seen, examined and discussed with attending MD, Dr. Cecily DONNELLY MD Internal Medicine Resident, PGY2 [facility] Date of Service: Feb 21, 2025 Billing Provider: DEJUAN GARDNER MD Common Visit Codes: [id number] INP/OBS CARE(HIGH) (Wall) TOYA DONNELLY, RES Feb 21, 2025 19:24 DEJUAN GARDNER MD Feb 25, 2025 16:43
[2025-02-21 20:00] VITALS: RESP 16; O2SAT 98
[2025-02-21] MEDS: docusate sod 100mg capsule PO SCH (20:00)
[2025-02-21 22:00] VITALS: BP 162/74; PULSE 106; RESP 16; TEMP 98.7; O2SAT 96
[2025-02-21 22:06] VITALS: BP 149/63
--- NOTE | 2025-02-21 22:50 | CONSULTATION REPORT ---
Consult Consult Consultation Reason for Consult: Cellulitis Consulting Provider: Dr. Tony Antibiotic Days: Vanco 2, Zosyn 2 S/P Rocephin Lines: PIV Micro: 02/19 Wound- GPC, Corynebacterium 02/19 Blood- ngtd HPI: Patient is a 59 year old male, wheelchair bound from C-M-T disease who presented to [facility] on 02/19 for evaluation of his LE wounds. He states that he had a debridement not too long ago that he thought was healing well (and it still may have been on his calf area) except when he went to wound care he was informed that there were maggots in his toes. He had some debridement at that time though after admission he was evaluated by surgery and no ideal spots for debridement have been identified. Therefore ID is asked to consult for medial management. On current exam, he does not have a leukocytosis and he reports a large BM which made him feel quite a bit better. He denies any antibiotic allergies nor known immunocompromising conditions. Past Medical/Surgical History: Childhood Bebe tooth disease, hypertension, peripheral neuropathies, diabetes, hypertension Current Medications Medications (Trade) Dose Ordered Sig/Baltazar Route PRN Reason Start Time Stop Time Status Last Admin Dose Admin Sodium Chloride 1,000 ml @ 1,000 mls/hr ONCE ONCE IV 02/19/25 18:25 02/19/25 19:24 DC 02/19/25 19:14 1,000 MLS/HR Vancomycin HCl 250 ml @ 166 mls/hr ONCE STAT IV 02/19/25 18:25 02/19/25 19:53 DC 02/19/25 19:14 166 MLS/HR Acetaminophen (Tylenol tablet) 650 mg Q6H PRN PO Fever above 101 02/19/25 20:10 02/20/25 19:50 650 MG Sodium Chloride 1,000 ml @ 100 mls/hr Q10H IV 02/19/25 20:10 02/21/25 22:16 100 MLS/HR Rivaroxaban (Xarelto tablet) 10 mg WS PO 02/20/25 17:00 02/21/25 17:35 10 MG Piperacillin/ Tazobactam/ Dextrose 50 ml @ 12.5 mls/hr Q8H IV 02/19/25 20:28 02/21/25 16:08 12.5 MLS/HR Insulin Glargine (Lantus inj) 50 unit HS SQ 02/19/25 21:00 02/20/25 10:30 DC 02/19/25 21:22 50 UNIT Insulin Human Lispro (Humalog Kwikpen U-100 (100 Unit/ ml) 3ml) SUPPLEMENTAL INSULIN To ... ACHS SQ 02/19/25 21:00 02/21/25 22:04 2 UNIT Vancomycin HCl 250 ml @ 166 mls/hr Q12H@0700,1900 IV 02/20/25 07:00 02/20/25 07:40 DC 02/20/25 06:50 166 MLS/HR Vancomycin HCl 250 ml @ 166 mls/hr Q12H@0700,1900 IV 02/20/25 19:00 02/21/25 18:58 166 MLS/HR Diltiazem HCl (Cardizem SR (twice daily) cap) 60 mg Q12H PO 02/20/25 20:00 02/21/25 22:06 60 MG Lisinopril (Zestril tablet) 20 mg DAILY PO 02/21/25 08:00 02/21/25 07:18 20 MG Timolol Maleate (timolol maleate 0.5% ophth. solution) 1 drop BID RIGHTEYE 02/20/25 20:00 02/21/25 22:05 1 DROP Linagliptin (Tradjenta tablet) 5 mg DAILY PO 02/21/25 08:00 02/21/25 07:18 5 MG Brimonidine Tartrate (Alphagan ophth solution) 1 drop BID RIGHTEYE 02/20/25 20:00 02/21/25 22:05 1 DROP Insulin Human Lispro (Humalog Kwikpen U-100 (100 Unit/ ml) 3ml) 10 unit TIDWM SQ 02/20/25 13:00 02/20/25 14:16 DC 02/20/25 13:48 10 UNIT Insulin Glargine (Lantus inj) 40 unit HS SQ 02/20/25 21:00 02/21/25 22:05 40 UNIT Furosemide (Lasix tablet) 20 mg DAILY PO 02/20/25 12:45 02/21/25 07:19 20 MG Insulin Human Lispro (Humalog Kwikpen U-100 (100 Unit/ ml) 3ml) 15 unit TIDWM SQ 02/20/25 18:00 02/21/25 18:57 15 UNIT Enteral Nutritional Formula (CARMEN Smoothie Arginine/glutam/ Ca2+Bmb) 1 cup BIDBD PO 02/21/25 08:00 02/21/25 17:40 1 CUP Social History: Lives by himself, has a caregiver, had daughters in town Family History: Noncontributory ROS: As in HPI, otherwise negative Objective: Vitals: Afebrile, 104, 17, 167/76, 98% on RA General: A&Ox3, NAD HEENT: NC/AT, normal conjunctiva, no oral lesions CV: Regular Resp: Clear anteriorly Abd: Soft, nontender, nondistended Ext: B legs wrapped. Multiple abrasions all over his toes of various colors from yellow to black. There is some erythema, some poorly and some well demarcated, on his mid-lower leg Lines: PIV Laboratory Tests 02/21/25 04:01 02/20/25 MRI 1. No MR evidence of osteomyelitis in the left foot. 2. Diffuse dorsal subcutaneous edema which may reflect cellulitis. No fluid collection. 3. Edema and fatty replacement in the intrinsic muscles of the foot. Myositis not excluded. Please note the compartment is a clinical diagnosis and should be excluded on that basis. Chronic healed fracture of the right distal tibia. Diffuse subcutaneous soft-tissue edema and swelling; possibly cellulitis. No bone marrow edema is present to suggest acute osteomyelitis or fracture. 10/14/22 No focal stenosis noted bilaterally. Normal multiphasic flow in the bilateral legs. Generally poor visualization throughout. Assessment: // B LE cellulitis, portal of entry is toe wounds. No evidence of underlying osteomyelitis on MRI // B Toe wounds, some of which had maggots prior to arrival // Wheelchair bound due to CMT disease // Antibiotic Allergies: none known // MRSA Screen: negative Plan: - Patient does not have a WBC count so can transition to PO therapy with Augmentin/Doxy - Follow up pending blood cultures; so far this does not seem to be embolic - Follow up pending wound cultures - Update arterial doppler - Wound care - Watch for SIRS signs - Thank you for the consult, will continue to follow. MARITZA WATERS DO Feb 21, 2025 22:50
[2025-02-22 06:00] VITALS: BP 148/67; PULSE 96; RESP 16; TEMP 98.5; O2SAT 98
[2025-02-22] MEDS: VANCOMYCIN LEVEL IV ONE (07:03)
[2025-02-22 07:17] VITALS: BP_SYST 148; PULSE 96
[2025-02-22 07:54] LABS: BASOPHILS # (AUTO) 0.2 X10'3 (0-0.2); BASOPHILS % (AUTO) 2.7 % (0-1); EOSINOPHILS # (AUTO) 0.4 X10'3 (0-0.9); EOSINOPHILS % (AUTO) 4.7 % (0-6); HEMATOCRIT 35.6 % (42.0-52.0); HEMOGLOBIN 12.2 g/dl (14.0-17.9); LYMPHOCYTES # (AUTO) 1.9 X10'3 (1.1-4.8); MEAN CORPUSCULAR HEMOGLOBIN 28.2 PG (27.0-31.0); MEAN CORPUSCULAR HGB CONC 34.2 g/dL (33.0-36.5); MEAN CORPUSCULAR VOLUME 82.6 FL (78-98); MONOCYTES # (AUTO) 0.9 X10'3 (0-0.9); MONOCYTES % (AUTO) 11.1 % (2-12); NEUTROPHILS # (AUTO) 5.1 X10'3 (1.8-7.7); NEUTROPHILS % (AUTO) 59.5 % (42-75); PLATELET COUNT 341 X10'3 (140-440); RED BLOOD COUNT 4.31 X10'6 (4.70-6.10); RED CELL DISTRIBUTION WIDTH 13.1 % (11.5-14.5); WHITE BLOOD COUNT 8.5 X10'3 (4.5-11.0)
[2025-02-22 08:16] LABS: ALANINE AMINOTRANSFERASE 19 U/L (12-78); ALBUMIN 2.2 G/DL (3.4-5.0); ALBUMIN/GLOBULIN RATIO 0.6 (1.1-1.5); ALKALINE PHOSPHATASE 68 IU/L (46-116); ANION GAP 6 (8-16); ASPARTATE AMINO TRANSFERASE 16 U/L (10-37); BILIRUBIN,TOTAL 0.3 MG/DL (0.1-1.0); BLOOD UREA NITROGEN 19 MG/DL (7-18); BUN/CREATININE RATIO 27.9 (10.0-20.0); CALCIUM 8.9 MG/DL (8.5-10.1); CHLORIDE 107 MMOL/L (99-107); CREATININE 0.68 MG/DL (0.60-1.10); GLUCOSE 117 MG/DL (70-104); POTASSIUM 3.9 MMOL/L (3.5-5.1); SODIUM 139 MMOL/L (135-145); TOTAL CARBON DIOXIDE 26.3 MMOL/L (24-32); TOTAL PROTEIN 5.8 G/DL (6.4-8.2); eCRCL 98 ML/MIN; eGFR > 90 ML/MIN
[2025-02-22 08:22] LABS: VANCOMYCIN,TROUGH 18.7 ug/mL (10.0-20.0)
[2025-02-22] MEDS: traMADol 50MG tablet PO PRN (12:51)
[2025-02-22] MEDS ORDERED: DOXY-224 PO (14:20)
[2025-02-22] MEDS ORDERED: AMOX-580 PO (14:21)
[2025-02-22] MEDS ORDERED: LACT1CAP26 PO (14:22)
--- NOTE | 2025-02-22 14:25 | DISCHARGE SUMMARY-Residence ---
Discharge Summary Providers to CC Resident Creating Document: TOYA DONNELLY, RES ~ Discharge Summary Admission Diagnosis: B/L Lower leg non-healing wounds, DM Hospital Course DATE OF ADMISSION: 02/19/2025 DATE OF DISCHARGE: 02/22/2025 Discharge Diagnosis\Comment: # Chronic nonhealing bilateral lower extremity wounds-pending unknown etiology # Left lower extremity cellulitis # Poorly controlled diabetes type 2 # Moderate protein calorie malnutrition #Atrial fibrillation controlled ventricular rate on Xarelto # Hypertension #History of hypertensive urgency # Hx of HFpEF 50-55% ( on 10/25/24) Operations\Procedures: None Consultants: Dr Ruffin, ID Wound care Complications: None Condition on DC: Stable New Medications: Amox Tr/Potassium Clavulanate 875/125 MG (Augmentin 875/125 MG) 875 Mg-125 Mg Tablet 1 TAB PO BID for 7 Days, #14 TAB Lactobacillus Rhamnosus (Culturelle) 10 Billion Cell Capsule 1 CAP PO DAILY for 14 Days, #14 CAP 0 Refills Doxycycline Hyclate (Doxycycline Hyclate) 100 Mg Capsule 100 MG PO BID@0830,1730 for 7 Days, #14 CAP Continued Medications: Acetaminophen (Acetaminophen) 500 Mg Tablet 1-2 TAB PO Q8H PRN for pain Brimonidine Tartrate/Timolol (Brimonidine-Timolol 0.2%-0.5%) 0.2 %-0.5 % Drops 1 DROP RIGHTEYE BID Diltiazem Hcl SR* (Cardizem SR*) 60 Mg Cap.sr.12h 1 CAP PO Q12H for 30 Days, #60 CAP Dulaglutide (Trulicity) 4.5 Mg/0.5 Ml Pen.injctr 1 SYR SUBCUT Q7D Furosemide* (Lasix*) 20 Mg Tablet 1 TAB PO DAILY for 10 Days, #10 TAB Insulin Glargine,Hum.rec.anlog (Lantus) 100 Unit/Ml Vial 30 UNIT SQ HS, EACH Insulin Glargine,Hum.rec.anlog* (Lantus*) 100 Unit/1 Ml Vial 34 UNITS SQ QAM Lisinopril (Lisinopril) 20 Mg Tablet 20 MG PO DAILY for 30 Days, #30 TAB Rivaroxaban (Xarelto) 20 Mg Tablet 1 TAB PO HS Sitagliptin Phosphate (Januvia) 100 Mg Tablet 1 TAB PO DAILY Discharge Summary: A 59-year-old electric wheelchair-bound male with PMH of Charcot tooth disease, hypertension, peripheral neuropathies, poorly controlled type 2 diabetes, hypertension, and Hx of HFpEF 50-55% ( on 10/25/24) presented with progressively worsening left lower extremity swelling and pain in the setting of chronic wounds. Reports chills but no fever, and presence of maggots in the wound, concern for superimposed soft tissue infection. Clinical picture consistent with left lower extremity cellulitis, with concern for polymicrobial infection given poor glycemic control in immune status. Notably, he observed maggots crawling in the wound. Hospital course: Patient was hospitalized for wound care, infection control and to rule out severe complications for chronic unhealed wound including necrotizing fasciitis and osteomyelitis with further management. We initiated vancomycin and Zosyn for broad-spectrum coverage including MRSA, Gram-negative, and anaerobes after the wound and blood C&S were obtained. Wound care was consult requested. Left lower extremity MRI was ordered showed 1. Marked circumferential subcutaneous edema in the left lower extremity from knee to to the ankle which may reflect cellulitis. No fluid collection. 2. Edema in all muscle groups lower extremity. Please note that compartment sy ndrome is a clinical diagnosis and should be excluded on that basis. 3. No MR evidence of osteomyelitis. Right MRI showed Chronic healed fracture of the right distal tibia. Diffuse subcutaneous soft-tissue edema and swelling; possibly cellulitis. No bone marrow edema is present to suggest acute osteomyelitis or fracture. He was given IV vancomycin and Zosyn for three days which were switched to PO Doxycycline and Augmentin on the day of discharge after ID specialist Dr Soriano consulted. The arterial USG bilateral legs were prelim reported with Right LOGGING TRUCK DRIVER, DFA,SFA Proximal is multiphasic. Remainder of right leg demonstrates monophasic flow. Minimal slow flow is seen in the Right distal SFA. Left LOGGING TRUCK DRIVER, PFA,SFA are multiphasic Left Pop is minimally multiphasic approaching monophasic. Left STRAP MAKING MACHINE OPERATOR,DPA are monophasic. No DEBORA due to wounds. Pain was controlled w/ PO Aynor 5 mg as needed. Bilateral unhealed leg wounds are not related to prior surgeries, and etiology is tentative with the possibility of poor controlled DM Vs arterial insufficiency with hx of Ayoipkr-Wivio-Mtdww disease. Blood glucose was controlled with SC lispro 15 units after meal and sc s/s high dose insulin regimen and SC glargine 40 units at night time. Heart rate was controlled around 100s, CHA2D VASc score is 3-4 and continued Xarelto and diltiazem 60 b.i.d. last time echo on 10/25/24 showed mild concentric LV hypertrophy, systolic function low normal, LVEF 50-55%, LA normal, trace MR, TR, [place] and no pericardial effusion. We Continued home medications including furosemide 20, Lisinopril 20 and Diltiazem. PT was evaluated and recommended for the Home discharge with histology assistant. All of the home medications were reviewed and reconciled, continue appropriately. All of his vitals were stable at the moment with temp 98.7 F, [place] 106/minute, RR 16/minute, BP 160/70 mm Hg, pulse oximetry 96% on room air. All of his questions and concerns were addressed with the best knowledge of our team before he was discharged back home. On exami [facility], General: Well alert, well oriented, not confused, not agitated, not in acute distress, well cooperated during the physical. HEENT: Conjunctive are pink, sclerae clear, no icterus, pupil is equal in both sides, reactive to light, no ear discharge, no pharyngeal erythema or an edema, mouth and lips are moist. Neck: Supple, no JVD, no lymphadenopathy and thyromegaly. Lungs:Equal air entry on both lungs, no additional sounds Heart: S1-S2 regular sinus rhythm and, regular rate, no gallops, no rubs, no murmurs Abdomen: No visible peristalsis, Bowel sounds present on auscultation, soft, nontender, no guarding, no rigidity Extremities: 5x 7 cm on right calf, 3 x 4 cm wound on left lang with the extensive small unhealed wounds bilateral legs with swelling and tenderness were noted. The wounds were properly dressed with the intact surgical dressing. No obvious deformities, capillary refill intact, able to wiggle toes both sides, peripheral pulsations are intact on both sides PHARMACY CLINICAL SPECIALIST: No focal neurological deficits, no motor and sensory weakness in all 4 extremities, could move all 4 extremities Musculoskeletal: No joint swelling, deformities, inflammations, and no scoliosis and back tenderness Skin: No active skin lesions and rashes Discharge instructions: [facility] WILL ASSUME YOUR CARE ONCE YOU ARE DISCHARGED. YOU WILL NEED TO CALL [facility] AT [phone] TO SET UP AN OUTPATIENT WOUND APPOINTMENT. yOU WILL NEED TO BE SEEN KARISSA. * You were given one time dose of PO maintain and doxycycline at the hospital and need to take rest of Antibiotic from the [facility] in [place], [place]* -please return to ER for any emergency conditions including foul-smelling abnormal discharge from the leg wounds, intolerable intense bilateral legs swelling along with the severe intense pain, fever with chills and rigors etc. -continue taking p.o. Augmentin and doxycycline for total seven days along with cultural to prevent unnecessary antibiotic resistance -please follow up with PCP, wound care and infectious disease doctors for further management including CBC CMP procalcitonin rechecked, regular wound care to get a better wound healing etc. -encourage protein diet for increasing wound healing, physical therapy and exercises to enhance blood supply for healing -PT eval and encourage movement, strict diabetic diet and blood sugar control with insulin injection, and strict blood pressure control. Resident MD attestation: Patient was seen, examined and discussed with attending MD, Dr. Cecily DONNELLY MD Internal Medicine Resident, PGY2 [facility] *Problems/Diagnosis: (1) Cellulitis, leg Status: Chronic Total Time Spent on D/C: > 30 Minutes Date of Service: Feb 22, 2025 Billing Provider: DEJUAN GARDNER MD Common Visit Codes: [id number] DISCH DAY >30min Problem Qualifiers (1) Cellulitis, leg: Laterality: unspecified laterality Qualified Codes: L03.119 - Cellulitis of unspecified part of limb TOYA DONNELLY RES Feb 22, 2025 14:25 DEJUAN GARDNER MD Feb 25, 2025 16:43
--- NOTE | 2025-02-22 15:05 | VASCULAR REPORT ---
Bilateral Lower Extremity Arterial Duplex Clinical History: Pain Comparison: VL ARTERIAL on DOS: 10/14/22 Technique: Duplex Doppler evaluation including color Doppler and spectral/pulsed waveform analysis of the lower extremity arteries was performed. Findings: RIGHT: Peak systolic velocities are as follows: FRUIT HARVEST MACHINE OPERATOR 113 cm/s Deep femoral 83 cm/s SFA proximal 65 cm/s SFA mid-portion 61 cm/s SFA distal 15 cm/s Popliteal 39 cm/s Posterior tibial 46 cm/s Anterior tibial nonvisualized cm/s Peroneal nonvisualized cm/s Dorsalis pedis 112 cm/s The waveforms are monophasic with diastolic flow. LEFT: Peak systolic velocities are as follows: FRUIT HARVEST MACHINE OPERATOR 101 cm/s Deep femoral 95 cm/s SFA proximal 122 cm/s SFA mid-portion 161 cm/s SFA distal 113 cm/s Popliteal 186 cm/s Posterior tibial 86 cm/s Anterior tibial 94 cm/s Peroneal not visualized cm/s Dorsalis pedis 94 cm/s The waveforms are monophasic. IMPRESSION: Bilateral Monophasic arterial waveforms suggestive of peripheral arterial disease. Right anterior tibial artery is not visualized. 20-49% stenosis of the left mid superficial femoral artery and left popliteal artery based on peak sy stolic velocity criteria. REFERENCE VALUES, [facility] ([facility]) vascular Imaging Lab Criteria: Peak systolic velocity rang es (in cm/sec) are as follows: <150 cm/s - <20 % stenosis 150-200 cm/s - 20-49% stenosis 200-300 cm/s - 50-75% stenosis >300 cm/s -> 75% stenosis
[2025-02-22] MEDS: amox tr/potassium clavulanate 875/125mg TAB PO SCH (17:39)
[2025-02-22] MEDS: DOXYCYCLINE 100MG CAPSULE PO SCH (17:39)
[2025-02-22] MEDS: amox tr/potassium clavulanate 875/125mg TAB PO ONE (17:43)
[2025-02-22] MEDS: DOXYCYCLINE 100MG CAPSULE PO STA (17:43)
[2025-02-22] MEDS ORDERED: furosemide 20MG tablet PO SCH (20:00)
== END 2025-02-22 18:26 | disposition home health service (06) | DRG 638 ==
LOC: ER 14:32 → ED HOLD 19:37 → ORTHO 4S 22:05 → SUR 3N 02-20 21:20
PROVIDERS: ADMIT Internal Medicine Critical Care Medicine; ATTEND Internal Medicine Critical Care Medicine
DX: E11.622 Type 2 diabetes mellitus with other skin ulcer (principal); E44.0 Moderate protein-calorie malnutrition; L03.116 Cellulitis of left lower limb; I50.32 Chronic diastolic (congestive) heart failure; L03.115 Cellulitis of right lower limb; L97.929 Non-pressure chronic ulcer of unspecified part of left lower leg with unspecified severity; L97.919 Non-pressure chronic ulcer of unspecified part of right lower leg with unspecified severity; E11.65 Type 2 diabetes mellitus with hyperglycemia; I11.0 Hypertensive heart disease with heart failure; E11.42 Type 2 diabetes mellitus with diabetic polyneuropathy; X58.XXXA Exposure to other specified factors, initial encounter; Y93.89 Activity, other specified; Y92.89 Other specified places as the place of occurrence of the external cause; Y99.8 Other external cause status; Z88.5 Allergy status to narcotic agent; Z99.3 Dependence on wheelchair; Z79.4 Long term (current) use of insulin; Z79.899 Other long term (current) drug therapy; Z68.24 Body mass index [BMI] 24.0-24.9, adult
CPT/HCPCS: 36415; 73718; 80048; 80053; 80061; 80202; 80305; 81001; 82948; 83036; 83605; 84145; 85025; 85651; 87040; 87070; 87075; 87077; 87081; 87186; 93925; 93970; 96365; 96372; 97161; 97530; 99215; 99285; A4349; A6213; A6223; A6250; A6253; A6258; A6446; A6449; A6590; G0378; J1815; J2543; J3370; J7030